=== PATIENT | male | born 1955 | race Caucasian/White ===

== ENCOUNTER 2016-10-01 13:06 | Emergency (ER) | payer OTHER ==
[~2016-10-01] VITALS: Ht 193 cm; Wt 163.6 kg
[2016-10-01 13:05] VITALS: BP 150/80; PULSE 65; RESP 16; O2SAT 95
[~2016-10-01 13:06] MED LIST: EPIN0.3P2 INJ; HYDR-4003 PO; INSU100V7 SUBQ; LIDO700A6 TOPICAL; LISI40TA PO; MAGN400C PO; METO-272 PO; NOV100I SUBQ; OXYC10TA69 PO; OXYC5TAB72 PO; ROSU5TAB PO; WARF7.5T4 PO; [UNRECOGNIZED DRUG - CODE] PO
--- NOTE | 2016-10-01 13:12 | ED.REPORT ---
HPI-Back Pain 40 and Over Date of Service Oct 01, 2016 ED Provider: Dasha Franz MD 61 year old male who is morbidly obese presents to the ER via EMS due to exacerbation of chronic lumbar pain. Two weeks ago he lifted his dog that weighs approximately 80lbs and had mild exacerbation of his back pain at that time. Today he experienced sudden severe exacerbation of pain while seated, with sharp, shooting left side lumbar pain and left side sciatica, with numbness of the left foot and toes. Symptoms are severe enough to prevent patient from ambulating independently. Nursing Notes Stated Complaint: BACK PAIN Chief Complaint: Back Pain or Injury Nursing Notes Reviewed: Yes Allergies: Coded Allergies: Fish Containing Products (Verified Allergy, Severe, Anaphylaxis, 10/01/16) nut - unspecified (Verified Allergy, Severe, Anaphylaxis, 10/01/16) Scheduled Insulin Aspart (NovoLOG U100 Insulin Vial) 100 Unit/Ml Mdv 50-60 UNITS SUBQ ACHS use per sliding scale Insulin Glargine (Lantus U100 Insulin Vial) 100 Unit/Ml Vial 60 UNITS SUBQ BID Lidocaine (Lidoderm) 1 Patch Patch 1 PATCH TOPICAL DAILY Lisinopril (Lisinopril) 40 Mg Tablet 40 MG PO BID Magnesium Oxide (Magnesium) 400 Mg Capsule 400 MG PO BID Metoprolol Succinate ER (Metoprolol Succinate ER) 50 Mg Tablet 100 MG PO BID Oxycodone ER (Oxycontin) 10 Mg Tablet 40 MG PO BID Rosuvastatin Calcium (Crestor) 5 Mg Tablet 5 MG PO HS Sotalol (Betapace) 160 Mg Tablet 200 MG PO BID Warfarin Sodium (Warfarin Sodium) 10 Mg Tablet 15 MG PO daily exc Saturday Warfarin Sodium (Coumadin) 10 Mg Tablet 10 MG PO saturday Scheduled PRN Epinephrine (Epipen 2-Shakir) 0.3 Mg/0.3 Ml Auto.injct 1 EACH INJ DIRECTED PRN PRN For Anaphyllaxis Hydrocodone-Acetaminophen 5-325 mg (Hydrocodone-Acetaminophen 5-325 mg) 1 Each Tablet 1-2 EACH PO Q4 PRN PRN For Pain oxyCODONE (oxyCODONE) 5 Mg Tablet 10 MG PO Q4 PRN PRN For Moderate Pain General Time Seen by MD: 13:11 Chief Complaint Back pain, Lumbar pain Hx Obtained From: Patient Arrived By: Ambulance Sudden in Onset?: Yes Onset Occurred: Just prior to arrival Symptom Duration: Since onset Caused by: Aggravated old injury, Chronic Injury Location: : Spinal lumbar area Quality: Painful Radiation: : Left leg above knee: Left leg below knee Severity: Current: Moderate Severity: Maximum: Moderate Associated with: Reports: Numbness left low ext Pertinent Negative: Pt denies other symptoms Similar Sx Previous: Yes Past Medical History Past Medical History Dysrhythmia Pacemaker Ichthyosis Chronic back pain SANTOSH on CPAP Reports: Diabetes mellitus Past Surgical History Abdominal surgery (tumor removal) at age 4 Reports: Pacemaker insertion Smoking History Former Smoker, Unknown if Ever Smoker Ambulatory Status Independent Review of Systems Male: Denies Incontinence Musculoskeletal: Reports: Back pain, Extremity pain, Lumbar pain, Denies: Joint pain, Neck pain Neurologic: Reports: Numbness (Left Lower Extremity), Problem walking, Denies: Abnormal movement, Bladder dysfunction, Bowel dysfunction, Focal weakness Complete sys rev & neg: except as marked. Physical Exam Initial Vital Signs Vital Signs (First) Date Time Temp Pulse Resp B/P Pulse Ox O2 Delivery O2 Flow Rate FiO2 10/01/16 13:05 35.5 65 16 150/80 95 Room Air Initial VS: Reviewed Head / Eyes: Atraumatic, Normocephalic Neck: Supple, Non-tender, Full range of motion Extremities: Vascular intact, Neuro intact, No swelling, No tenderness Skin: Warm, Dry, No cyanosis General/Constitutional: Awake, Alert, Well developed, Well nourished Appearance / Presentation: Positive: Obese Respiratory / Chest: Breath sounds NL, Breath sounds = bilat, No respiratory distress, No rales, No rhonchi, No wheezing Cardiovascular: Heart rate NL, Regular rhythm, Heart sounds NL, No murmurs, Peripheral circulation NL Neurologic: Oriented X3, Speech NL, No motor deficits, No sensory deficits, CN II - XII intact Lower Extremity / Pelvis / MS: Atraumatic, Full range of motion, No deformity, Neurologic intact, Vascular intact Skin: Warm, Dry, Intact Rash / Lesion Notes: Ichtheosis Re-Eval/Medical Decision Re-Evaluation/Progress #1: Time of Eval: 14:24 Patient Status: Pain improved Re-Evaluation/Progress Note: Patient is resting comfortably, pain improved after administration of pain medications. Completed physical examination. Discussed physical examination and plan to discharge after pain is managed. Patient is amenable to the plan. Return precautions given. All other questions addressed. Re-Evaluation/Progress #2: Time of Eval: 15:57 Patient Status: Condition improved Re-Evaluation/Progress Note: Reevaluated. Now able to sit and stand with some pain but tolerable. Reviewed course of action as well as pain medication plan for discharge Counseled Regarding: Diagnosis, Need for follow-up, When/why to return to ED Discharge & Departure Impression: Primary Impression: Lumbar radicular pain Disposition: Home Discharge Condition All VS Reviewed: Yes Condition: Stable Patient Instructions: Lumbar Radiculopathy (ED) Additional Instructions: You have clearly exacerbated your chronic low back pain. The spasm in the low back is what I suspect is causing the pain shooting down her leg. It makes sense to try conservative measures as below and see if he will improve. If you are getting worse or clearly not improving he will need to talk about additional imaging options with your primary care doctor. Your pacemaker limits MRI options as you know. I have prescribed you a steroid called Decadron. Please take 10mg on saturday and on sat. You will need an extra 10 mg of lantus each day that you take decadron and if your sugars are high on , you may need extra 10mg then too Use percoset for severe pain, 1-2 every 6 hours as needed Use diazepam 5mg every 8 hours as needed for severe muscle spasm Return to the ER if you develop uncontrollable pain, numbness of your legs, numbness between your legs, incontinence of urine or stool, or any other concerning symptoms. I hope you heal quickly Referrals: [facility]CP (PCP) Lila Attestation Portions of this note were transcribed by Orion Cordova. I, Dr. Franz, personally performed the history, physical exam and medical decision-making; I reviewed and confirmed the accuracy of the information in the transcribed note. Signed by: Lila Amador, 10/01/2016 and 14:31 Dasha Franz MD Oct 01, 2016 13:12 ORION CORDOVA Oct 01, 2016 13:20
[2016-10-01] MEDS ORDERED: WARF10TA4 PO (13:14)
[2016-10-01] MEDS ORDERED: WARF10TA PO (13:14)
[2016-10-01] MEDS ORDERED: [UNRECOGNIZED DRUG - CODE] PO (13:14)
[2016-10-01] MEDS ORDERED: HYDROmorphone 1 mg/mL Inj IVPUSH PRN (13:20)
[2016-10-01] MEDS ORDERED: Ondansetron 2 mg/mL 2 mL Inj IVPUSH PRN (13:20)
[2016-10-01] MEDS ORDERED: HYDROmorphone 1 mg/mL Inj IVPUSH ONE (14:30)
[2016-10-01] MEDS ORDERED: Dexamethasone Inj 10 MG in 0.9% Sodium Chloride-Pha MIX 50 ML IV ONE (14:30)
[2016-10-01] MEDS ORDERED: DEX1 PO (16:00)
[2016-10-01] MEDS ORDERED: DIAZ5TAB3 PO (16:00)
[2016-10-01] MEDS ORDERED: OXYC1TAB24 PO (16:00)
[2016-10-01 16:40] VITALS: BP 111/71; PULSE 69; O2SAT 96
== END 2016-10-01 16:41 | disposition home or self-care (01) ==
LOC: SED 13:06 → EDBD 13:06 → SED 16:41
DX: M54.16 Radiculopathy, lumbar region (principal); X50.0XXA Overexertion from strenuous movement or load, initial encounter; Y93.89 Activity, other specified; Y92.9 Unspecified place or not applicable; Y99.8 Other external cause status; E11.9 Type 2 diabetes mellitus without complications; Z79.4 Long term (current) use of insulin; Z87.891 Personal history of nicotine dependence; Z95.0 Presence of cardiac pacemaker; Z79.01 Long term (current) use of anticoagulants; Z91.013 Allergy to seafood
CPT/HCPCS: 96374; 96375; 96376; 99284; J1100; J1170; J1200; J2405